=== PATIENT | male | born 1945 | race Caucasian/White ===

== ENCOUNTER 2024-04-08 10:50 | Outpatient (REF) | payer MEDICARE, OTHER, SELFPAY ==
[2024-04-08 11:17] LABS: Albumin* 4.2 g/dL (3.3-5.0); Potassium* 5.1 mmol/L (3.6-5.1); Sodium* 138 mmol/L (135-149)
[2024-04-08 11:20] LABS: Carbon Dioxide* 31 mmol/L (20-32)
[2024-04-08 11:21] LABS: Blood Urea Nitrogen* 18 mg/dL (7-30); Calcium* 9.7 mg/dL (8.4-10.6); Glucose* 109 mg/dL (60-115); Phosphorus* 4.1 mg/dL (2.5-4.5)
[2024-04-08 11:33] LABS: Anion Gap 4 mEq/L (7-15); Chloride* 103 mmol/L (96-114)
[2024-04-08 11:36] LABS: Creatinine* 0.9 mg/dL (0.5-1.5); Estimated Glomerular Filt Rate 87 ml/min
== END 2024-04-08 10:51 | disposition home or self-care (01) ==
LOC: NPINS 10:50
PROVIDERS: Visit Provider Internal Medicine Nephrology
DX: I10 Essential (primary) hypertension (principal)
CPT/HCPCS: 80069